=== PATIENT | female | born 1950 | race Caucasian/White ===

== ENCOUNTER 2017-03-20 01:25 | Inpatient (IN) | payer MEDICARE, OTHER ==
[2017-03-20] MEDS ORDERED: HYDROmorphONE/DILAUDID 1 MG/ML SYR ONE ×2 (02:05→04:27)
[2017-03-20] MEDS ORDERED: ONDANSETRON 4 MG/2 ML VIAL ONE (02:05)
[2017-03-20] MEDS ORDERED: HYDROmorphONE/DILAUDID 1 MG/ML SYR IVP ONE ×2 (02:08→04:32)
--- NOTE | 2017-03-20 02:10 | EDPHY ---
H & P Stated Complaint: abd pain Time Seen by Provider: 03/20/17 01:57 HPI/ROS: Chief Complaint: Abdominal pain HPI: 67-year-old woman with a history of an ileostomy secondary to ulcerative colitis 20 years ago. Patient has a history of a partial small-bowel obstruction about a year ago. States that occurred after she helped a friend stay neck. Patient again was helping a friend sustain a deck and bending over a lot today when she started having pain. Pain began about 6 o'clock yesterday evening has been worsening since that time. Last significant ostomy output was yesterday afternoon. Abdomen is distended and painful. Some nausea but no vomiting. No fevers or chills. Pain is about an 8/10. ROS: 10 point Review of Systems is negative except as noted in the HPI. PMH: Ulcerative colitis status post ileostomy 20 years ago, depression Medications: Fluoxetine Allergies: Codeine Social History: No smoking, occasional alcohol, no recreational drug use Family History: non-contributory Physical Exam: Gen: Awake, Alert, No Distress HEENT: Nose: no rhinorrhea Eyes: PERRLA, EOMI Mouth: Moist mucosa Neck: Supple, no JVD Chest: nontender, lungs clear to auscultation Heart: S1, S2 normal, no murmur Abd: Distended, diffuse tenderness primarily on the right-hand side. No output in her ostomy bag, positive guarding Back: no CVA tenderness, no midline tenderness Ext: no edema, non-tender Skin: no rash Neuro: CN II-XII intact, Sensation grossly intact, Strength 5/5 in bilateral upper and lower extremities - Personal History Current Tetanus/Diphtheria Vaccine: Yes Current Tetanus Diphtheria and Acellular Pertussis (TDAP): Yes - Medical/Surgical History Hx Asthma: No Hx Chronic Respiratory Disease: No Hx Diabetes: No Hx Cardiac Disease: No Hx Renal Disease: No Hx Cirrhosis: No Hx Alcoholism: No Hx HIV/AIDS: No Hx Splenectomy or Spleen Trauma: No Other PMH: ulcerative colitis, ostomy, hysterectomy, tonsilectomy - Social History Smoking Status: Never smoked Constitutional: Initial Vital Signs Temperature (C) 36.4 C 03/20/17 01:43 Heart Rate 89 03/20/17 01:43 Respiratory Rate 18 03/20/17 01:43 Blood Pressure 115/85 H 03/20/17 01:43 O2 Sat (%) 99 03/20/17 01:43 O2 Delivery Mode Room Air Allergies/Adverse Reactions: codeine Allergy (Verified 03/20/17 01:42) Home Medications: Medication Instructions Recorded FLUoxetine 03/20/17 Medical Decision Making - Diagnostics Imaging Results: CT scan shows a small bowel obstruction. Interpreted by Dr. Estrella. Imaging: Discussed imaging studies w/ scalloper Radiologist ED Course/Re-evaluation: CT scan confirms small-bowel obstruction. I have discussed with Dr. Chavarria, general surgery. He will admit the patient to his service for further care. - Data Points Laboratory Results: Laboratory Results 03/20/17 01:55 03/20/17 01:55 03/20/17 03/20/17 01:55 01:55 WBC 8.32 10^3/uL 10^3/uL (3.80-9.50) RBC 4.76 10^6/uL 10^6/uL (4.18-5.33) Hgb 15.3 g/dL g/dL (12.6-16.3) Hct 46.2 % % (38.0-47.0) MCV 97.1 fL fL (81.5-99.8) MCH 32.1 pg pg (27.9-34.1) MCHC 33.1 g/dL g/dL (32.4-36.7) RDW 12.7 % % (11.5-15.2) Plt Count 271 10^3/uL 10^3/uL (150-400) MPV 10.1 fL fL (8.7-11.7) Neut % (Auto) 79.6 % H % (39.3-74.2) Lymph % (Auto) 12.0 % L % (15.0-45.0) [place] % (Auto) 6.0 % % (4.5-13.0) Eos % (Auto) 1.3 % % (0.6-7.6) Baso % (Auto) 0.6 % % (0.3-1.7) Nucleat RBC Rel Count 0.0 % % (0.0-0.2) Absolute Neuts (auto) 6.62 10^3/uL H 10^3/uL (1.70-6.50) Absolute Lymphs (auto) 1.00 10^3/uL 10^3/uL (1.00-3.00) Absolute Monos (auto) 0.50 10^3/uL 10^3/uL (0.30-0.80) Absolute Eos (auto) 0.11 10^3/uL 10^3/uL (0.03-0.40) Absolute Basos (auto) 0.05 10^3/uL 10^3/uL (0.02-0.10) Absolute Nucleated RBC 0.00 10^3/uL 10^3/uL (0-0.01) Immature Gran % 0.5 % % (0.0-1.1) Immature Gran # 0.04 10^3/uL 10^3/uL (0.00-0.10) Sodium 136 mEq/L mEq/L (134-144) Potassium 4.1 mEq/L mEq/L (3.5-5.2) Chloride 103 mEq/L mEq/L (97-110) Carbon Dioxide 24 mEq/l mEq/l (22-31) Anion Gap 9 mEq/L mEq/L (8-16) BUN 19 mg/dL mg/dL (7-23) Creatinine 0.8 mg/dL mg/dL (0.6-1.0) Estimated GFR > 60 Glucose 123 mg/dL H mg/dL (70-100) Calcium 9.8 mg/dL mg/dL (8.5-10.4) Medications Given: Discontinued Medications Hydromorphone HCl (Dilaudid) 0.5 mg IVP EDNOW ONE Stop: 03/20/17 02:09 Last Admin: 03/20/17 02:10 Dose: 0.5 mg Sodium Chloride (Ns) 1,000 mls @ 0 mls/hr IV ONCE ONE PRN Reason: Wide Open Stop: 03/20/17 02:12 Last Admin: 03/20/17 02:17 Dose: 1,000 mls Ondansetron HCl (Zofran) 4 mg IVP EDNOW ONE Stop: 03/20/17 02:12 Last Admin: 03/20/17 02:17 Dose: 4 mg Departure - Departure Disposition: [facility] Acute Clinical Impression: Bowel obstruction Condition: Fair Referrals: Luann Allen MD [Primary Care Provider] - As per Instructions
[2017-03-20] MEDS ORDERED: NS 1,000 ML IV ONE (02:11)
[2017-03-20] MEDS ORDERED: ONDANSETRON 4 MG/2 ML VIAL IVP ONE (02:11)
[2017-03-20 02:18] LABS: % IMMATURE GRANULYOCYTES 0.5 % (0.0-1.1); ABSOLUTE IMMATURE GRANULOCYTES 0.04 10^3/uL (0.00-0.10); ADD DIFF? NO; ADD MORPH? NO; ADD SCAN? NO; ATYPICAL LYMPHOCYTE FLAG 10 (0-99); FRAGMENT RBC FLAG 0 (0-99); HEMATOCRIT 46.2 % (38.0-47.0); HEMOGLOBIN 15.3 g/dL (12.6-16.3); LEFT SHIFT FLG 0 (0-99); LIPEMIA HEMOLYSIS FLAG 80 (0-99); MEAN CELL HEMOGLOBIN 32.1 pg (27.9-34.1); MEAN CELL HEMOGLOBIN CONCENTR. 33.1 g/dL (32.4-36.7); MEAN CELL VOLUME 97.1 fL (81.5-99.8); MEAN PLATELET VOLUME 10.1 fL (8.7-11.7); PLATELET CLUMPS FLAG 30 (0-99); PLATELET COUNT 271 10^3/uL (150-400); RED BLOOD CELL COUNT 4.76 10^6/uL (4.18-5.33); RED CELL DISTRIBUTION WIDTH 12.7 % (11.5-15.2)
[2017-03-20] MEDS ORDERED: IOPAMIDOL (ISOVUE-300) 100 ML BTL ONE (02:25)
[2017-03-20 02:27] LABS: ANION GAP 9 mEq/L (8-16); CALCIUM 9.8 mg/dL (8.5-10.4); CARBON DIOXIDE 24 mEq/l (22-31); CHLORIDE 103 mEq/L (97-110); CREATININE 0.8 mg/dL (0.6-1.0); GLOMERULAR FILTRATION RATE > 60; GLUCOSE 123 mg/dL (70-100); POTASSIUM 4.1 mEq/L (3.5-5.2); SODIUM 136 mEq/L (134-144)
[2017-03-20] MEDS: POTASSIUM Cl (KCl) 20 MEQ in LR 1,000 ML IV SCH (05:38)
--- NOTE | 2017-03-20 05:38 | GHP ---
[f rep st] HISTORY AND PHYSICAL DATE OF ADMISSION: 03/20/2017 CHIEF COMPLAINT: Abdominal pain. Diminished stomal output. HISTORY OF PRESENT ILLNESS: 67-year-old female, who had a total colectomy in approximately 2004 for ulcerative colitis. This was done by Dr. Adalid chaudhry at [facility]. She originally had a J-pouch prior to that which failed. Since that time, she had several small bowel obstructions, all of which had resolved with either bowel rest or NG suction. She currently notices mild abdominal pa in, 1 episode of vomiting which was small volume, and no stool output this afternoon. ALLERGIES: Codeine. CURRENT MEDICATIONS: Fluoxetine 20 mg p.o. daily. HABITS: Nonsmoker. Alcohol: Daily wine. SOCIAL HISTORY: , retired teacher. REVIEW OF SYSTEMS: Denies asthma, heart trouble, diabetes, epilepsy, rheumatic fever. PHYSICAL EXAM: Pleasant, alert, oriented female, in minimal distress. HEENT: No scleral icterus. Pharynx clear. NECK: Supple without adenopathy. LUNGS: Clear. HEART: Normal S1, S2 without mu rmur. ABDOMEN: Soft, mild distention. Right lower quadrant stoma with an empty appliance. No obv ious hernias were noted. EXTREMITIES: Grossly unremarkable. NEUROLOGIC: Grossly unremarkable. LABS/X-RAYS: CT is reviewed, showing distended small bowel throughout, but no transition zone. The re is fecalization of the terminal ilium up to the level of the stoma, but I do not see a peristomal hernia or any other transition zone. ASSESSMENT: Small bowel obstruction versus ileus. RECOMMENDATIONS AND PLAN: Bowel rest, IV hydration, observation. I have not placed an NG tube at t his time, but told her that an NG tube will be placed if she has large-volume emesis or increase in distention. Laboratory exams are fairly normal with a normal white blood count and normal electroly jeovanny. /[id number]/MODL
[2017-03-20] MEDS: ONDANSETRON 4 MG/2 ML VIAL IVP PRN ×2 (08:21→22:24)
[2017-03-20] MEDS: HYDROmorphONE/DILAUDID 1 MG/ML SYR IVP PRN ×3 (08:21→22:29)
--- NOTE | 2017-03-20 09:06 | SOAPPROG ---
SOBETTY Progress Note Assessment/Plan: Assessment: 67 FEMALE WITH MULTIPLE ABD SURGERIES/ NOW WITH SBO POSSIBLY RELATED TO OSTOMY ABD SOFT AND LESS TENDER/ SMALL AMOUNT OF FLATUS IN BAG/ DECREASED BS AFEBRILE/ STOMA OK WO OBVIOUS HERNIA Plan:WILL FOLLOW/ MAY NEED STOMAL DILATATION 03/20/17 09:04 Objective: Vital Signs Temp Pulse Resp BP Pulse Ox 36.6 C 82 18 119/74 94 03/20/17 08:00 03/20/17 08:00 03/20/17 08:00 03/20/17 08:00 03/20/17 08:00 03/19/17 03/20/17 03/21/17 05:59 05:59 05:59 Intake Total 1000 Balance 1000 ICD10 Worksheet Patient Problems: Problems Problem Status Onset Bowel obstruction Acute
--- NOTE | 2017-03-20 21:49 | SOAPPROG ---
DULCE Progress Note Assessment/Plan: Assessment: 67 FEMALE WITH MULTIPLE ABD SURGERIES/ NOW WITH SBO POSSIBLY RELATED TO OSTOMY ABD SOFT AND LESS TENDER/ SMALL AMOUNT OF FLATUS IN BAG/ DECREASED BS AFEBRILE/ STOMA OK WO OBVIOUS HERNIA Plan:WILL FOLLOW/ MAY NEED STOMAL DILATATION 03/20/17 09:04 03/20/17 21:48 feels better tonite/ some output from stoma/ will hold off on dilataion Objective: Vital Signs Temp Pulse Resp BP Pulse Ox 36.9 C 86 16 121/70 H 92 03/20/17 20:00 03/20/17 20:00 03/20/17 20:00 03/20/17 20:00 03/20/17 20:00 03/19/17 03/20/17 03/21/17 05:59 05:59 05:59 Intake Total 1000 1020 Output Total 100 Balance 1000 920 ICD10 Worksheet Patient Problems: Problems Problem Status Onset Bowel obstruction Acute
[2017-03-21] MEDS: POTASSIUM Cl (KCl) 20 MEQ in LR 1,000 ML IV SCH ×2 (02:37→14:01)
[2017-03-21] MEDS: HYDROmorphONE/DILAUDID 1 MG/ML SYR IVP PRN (02:45)
[2017-03-21] MEDS: ONDANSETRON 4 MG/2 ML VIAL IVP PRN (04:35)
--- NOTE | 2017-03-21 06:51 | GCON ---
[f rep st] CONSULTATION DATE OF CONSULTATION: 03/20/2017 The patient is a 67-year-old female with a possible bowel obstruction related to her ostomy. She has had multiple previous abdominal surgeries for ulcer colitis, including a J pouch, J pouch takedown and APR and a lysis of adhesions for small bowel obstruction. She has an ileostomy, which has been functioning normally. Until recently, she has had a couple episodes of obstructive type symptoms. Presently, she is not putting much gas or stool in the ostomy. CT scan suggested a bowel obstruction extending right up to the ostomy itself. She has been afebrile, had some emesis. ALLERGIES: Codeine. PRESENT MEDICATIONS: Prozac. REVIEW OF SYSTEMS: Reveals she is an ex-smoker. She denies any cardiopulmonary symptoms, diabetes, epilepsy, or other major medical problems from a 10-point review of systems. PAST HISTORY: Negative except for ulcerative colitis and multiple surgeries related to her colitis PHYSICAL EXAMINATION: GENERAL: Reveals an alert, cooperative, 67-year-old female in no acute distress. HEAD AND NECK: Exam is benign without icterus or adenopathy. No oral lesions. The neck is supple. CHEST: Clear. CARDIAC: Regular rhythm without murmurs. ABDOMEN: Soft, slightly distended, minimal tenderness. She has a normal appearing ostomy in the right lower quadrant and no evidence of peristomal hernia. No abdominal incisional hernias could be demonstrated. EXTREMITIES: Reveal a full range of motion, full pulses. NEUROLOGIC: Physiologic. 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 Will follow very closely and consider dilatation of her ostomy if necessary. /[id number]/MODL MTDD
--- NOTE | 2017-03-21 13:51 | SOAPPROG ---
SOAP Progress Note Assessment/Plan: Assessment: 67 FEMALE WITH MULTIPLE ABD SURGERIES/ NOW WITH SBO POSSIBLY RELATED TO OSTOMY ABD SOFT AND LESS TENDER/ SMALL AMOUNT OF FLATUS IN BAG/ DECREASED BS AFEBRILE/ STOMA OK WO OBVIOUS HERNIA Plan:WILL FOLLOW/ MAY NEED STOMAL DILATATION 03/20/17 09:04 03/20/17 21:48 feels better tonite/ some output from stoma/ will hold off on dilataion 03/21/17 13:50 MUCH OUTPUT FROM OSTOMY TODAY/ 2-WAY STILL SOME DISTENTION/ WILL GO AHEAD AND DILATE STOMA Objective: Vital Signs Temp Pulse Resp BP Pulse Ox 36.8 C 77 16 114/69 90 L 03/21/17 07:19 03/21/17 07:19 03/21/17 07:19 03/21/17 07:19 03/21/17 07:19 03/20/17 03/21/17 03/22/17 05:59 05:59 05:59 Intake Total 1000 2270 Output Total 450 Balance 1000 1820 ICD10 Worksheet Patient Problems: Problems Problem Status Onset Bowel obstruction Acute
[2017-03-21] MEDS: IBUPROFEN 200 MG TAB PO PRN ×2 (16:26→23:16)
--- NOTE | 2017-03-22 07:45 | GOP ---
[f rep st] OPERATIVE REPORT DATE OF OPERATION: 03/21/2017 SURGEON: Gabriel Monaco MD PREOPERATIVE DIAGNOSIS: Ileostomy stoma stricture. POSTOPERATIVE DIAGNOSIS: Ileostomy stoma stricture. PROCEDURE PERFORMED: Dilatation of the ileostomy stoma. FINDINGS: Easily dilated to 10 [place] DESCRIPTION OF PROCEDURE: The patient was laid in the supine position. The appliance was removed. The ileostomy stoma was then gently dilated with graduated Hegar dilators until a little finger could be passed into the stoma. She tolerated the procedure very well. There were no complications. No blood loss. The ostomy appliance was reapplied. /[id number]/MODL MTDD
[2017-03-22 07:48] VITALS: BP 110/53; PULSE 88; RESP 16; TEMP 98.3; O2SAT 96
--- NOTE | 2017-03-22 08:41 | SOAPPROG ---
SOAP Progress Note Assessment/Plan: Assessment/Plan: 67 Y F admitted with SBO, s/p stomal dilation, doing well. D/c to home. S: eating, no pain O: alert, dressed in street clothes, eating eggs, shaver, and toast no wob abdomen soft, nt +liquid fecal contents filling bag 03/22/17 08:39 Objective: Vital Signs Temp Pulse Resp BP Pulse Ox 36.8 C 88 16 110/53 L 96 03/22/17 07:43 03/22/17 07:43 03/22/17 07:43 03/22/17 07:43 03/22/17 07:43 03/21/17 03/22/17 03/23/17 05:59 05:59 05:59 Intake Total 2270 1200 Output Total 450 Balance 1820 1200 ICD10 Worksheet Patient Problems: Problems Problem Status Onset Bowel obstruction Acute
--- NOTE | 2017-03-22 14:11 | GDS ---
[f rep st] DISCHARGE SUMMARY DISCHARGE DIAGNOSES: 1. Small bowel obstruction possibly related to ostomy. 2. History of multiple abdominal surgeries including a total colectomy with abdominoperineal resect ion and ileostomy for ulcerative colitis. PROCEDURES: Stomal dilatation with Dr. Gabriel Monaco. SPECIAL TESTS: CT scan of the abdomen and pelvis on 03/20/2017 showed status post colectomy with fe elif distention of the remaining right colon along with moderate fluid-filled distention of distal sm all bowel with narrowing of bowel lumen through anterior abdominal wall at the site of the ostomy robertson ggesting possible stenosis of the ostomy. Please see report for details. HOSPITAL COURSE: Laura is a 67-year-old female with a history of multiple abdominal surgeries in cluding total colectomy with ileostomy and APR for ulcerative colitis. She reports this being her f ourth bowel obstruction in 17 years, all of which resolved conservatively. She was admitted for obs ervation, made n.p.o., and supported with IV fluids, antiemetics, and pain medicines as needed. Her symptoms began to improve. Ultimately it was thought that her bowel obstruction could be due to so me stenosis at her ileostomy site. This was sequentially dilated by Dr. Gabriel Monaco at bedside. The patient tolerated this well. Her diet was advanced without event. She stayed overnight for fur ther observation and felt ready for discharge the following day. DISCHARGE INSTRUCTIONS: Patient was discharged to home in stable condition. She had no activity or dietary restrictions. She should follow up with us in 1-2 weeks or sooner if she has problems or c oncerns. /[id number]/MODL
== END 2017-03-22 10:08 | disposition home or self-care (01) | DRG 395 ==
LOC: OBSVTOIN 03:34 → F2W 04:54
PROVIDERS: ADMIT Surgery; ATTEND Surgery
PROC: 0D7 Gastrointestinal System, Dilation (ICD-10-PCS; principal; 2017-03-21)
DX: K94.19 Other complications of enterostomy (principal)
CPT/HCPCS: 96374; J1170; J2405; Q9967